=== PATIENT | male | born 1975 | race African-American/Black ===

== ENCOUNTER 2021-04-28 12:11 | Outpatient (REF) | payer OTHER, SELFPAY ==
[2021-04-28 13:34] LABS: Binax Internal Control QC Valid; Binax Now Covid-19 Ag Positive (Negative)
== END 2021-04-28 12:12 | disposition home or self-care (01) ==
LOC: HO.LAB 12:11
PROVIDERS: Visit Provider Internal Medicine
DX: Z20.822 Contact with and (suspected) exposure to COVID-19 (principal)
CPT/HCPCS: C9803